=== PATIENT | male | born 1985 | race Caucasian/White ===

== ENCOUNTER 2022-08-01 09:14 | Outpatient (REF) | payer OTHER, SELFPAY ==
--- NOTE | 2022-08-01 09:26 | EMG_ITS ---
Left median and ulnar motor and sensory studies were performed. Left radial and sensory study was performed. Left median and lateral antecubital brachial sensory studies were performed and left and right spinal accessory muscle was tested. Course of left spinal accessory nerve muscle was traced. Needle examination was performed. IMPRESSION: 1. Mild left ulnar neuropathy across cubital tunnel. 2. Normal bilateral spinal accessory nerves. MD FAINA Niño/AMY / [id number]
== END 2022-08-01 09:15 | disposition home or self-care (01) ==
LOC: HO.NEURO 09:14
PROVIDERS: PCP Internal Medicine; Visit Provider Surgery
DX: L72.0 Epidermal cyst (principal); G56.22 Lesion of ulnar nerve, left upper limb
CPT/HCPCS: 95886; 95911